=== PATIENT | male | born 1960 | race Caucasian/White ===

== ENCOUNTER 2019-07-16 11:52 | Inpatient (IN) ==
--- NOTE | 2019-07-16 12:32 | Diag Imaging Result Doc PS360 ---
EXAM: TOE(S)-RIGHT INDICATION: possible necrotic 5th toe TECHNIQUE: 3 views COMPARISON: None. FINDINGS: There has been a prior amputation of the second toe at the MTP joint. There is soft tissue edema around the fifth toe. There is suggestion of mild periosteal reaction at the distal shaft of the fifth metatarsal this could represent periostitis. However, no well-defined bony erosion is identified to indicate osteomyelitis by plain radiograph on the current study. There is no discrete fracture, dislocation, or significant intrinsic osseous lesion, otherwise. IMPRESSION: Soft tissue edema around the fifth toe suggesting cellulitis and mild periosteal reaction around the distal shaft of the fifth metatarsal as described. Electronically signed by Jagdish Williamson 07/16/2019 12:30 PM
[2019-07-16 13:01] LABS: BASO# 0.07 X1000 (0.0-0.2); BASO% 0.6 % (0.0-0.8); EOS% 1.8 % (0.0-10.0); HEMATOCRIT 39.7 % (42.0-52.0); HEMOGLOBIN 13.6 g/dL (14.0-18.0); IMM GRAN# 0.05 X1000 (0.0-0.04); IMM GRAN% 0.5 % (0.0-0.5); LYMPH# 2.15 X1000 (1.2-3.4); LYMPH% 19.6 % (20.5-51.1); MCHC 34.3 g/dL (33-37); MCV 87.4 FL (81-99); MONO# 1.09 X1000 (0.11-0.59); MPV 9.9 FL (7.4-10.4); NEUT# 7.39 X1000 (1.4-6.5); NEUT% 67.5 % (42.2-75.2); PLT 369 X1000 (130-400); RBC 4.54 XMIL (4.7-6.1); RDW 12.2 % (11.5-14.5); WBC 10.95 X1000 (4.8-10.8)
[2019-07-16 13:07] LABS: INR 1.07; PTT 30.1 Seconds (22.3-41.8)
[2019-07-16] MEDS ORDERED: CLINDAMYCIN IV ONE (13:30)
[2019-07-16 13:32] LABS: ESTIMATED GFR > 60
[2019-07-16 13:35] LABS: AGAP 13; ALB/GLOB RATIO 0.7; ALBUMIN 3.5 g/dL (3.5-5.0); ALKALINE PHOSPHATASE 131 U/L (32-122); BUN 7 mg/dL (8-22); CALCIUM 9.4 mg/dL (8.8-10.2); CHLORIDE 88 mmol/L (98-107); COSMO 261; GLUCOSE 137 mg/dL (70-104); GOT 24 U/L (10-34); GPT 13 U/L (10-44); POTASSIUM 3.9 mmol/L (3.5-5.1); SODIUM 130 mmol/L (136-145); TCO2 29 mmol/L (25-35); TOTAL BILIRUBIN 0.64 mg/dL (0.20-1.00); TOTAL PROTEIN 8.4 g/dL (6.3-8.3)
--- NOTE | 2019-07-16 13:45 | PROVIDER DOCUMENTATION ---
This chart was entered by Chen Queen Scribe, acting as scribe for Serge Cardona MD. HPI-General Adult - General Chief Complaint: Extremity Pain Stated Complaint: TOE PAIN Time Seen by Provider: 07/16/19 12:02 Source: patient Allergies/Adverse Reactions: Patient Allergies Allergy/AdvReac Type Severity Reaction Status Date / Time No Known Allergies Allergy Verified 07/16/19 12:36 Home Medications: Home Medication List Medication Instructions Recorded Confirmed Last Taken Type Aspirin [Aspirin EC] 81 mg PO QHS 07/16/19 07/16/19 Unknown History Celecoxib [Celebrex] 200 mg PO DAILY 07/16/19 07/16/19 Unknown History Cyclobenzaprine [Flexeril] 10 mg PO TID PRN 07/16/19 07/16/19 Unknown History Esomeprazole [Nexium] 40 mg PO DAILY 07/16/19 07/16/19 Unknown History Gabapentin [Neurontin] 800 mg PO TID 07/16/19 07/16/19 07/15/19 History Hydrochlorothiazide 25 mg PO DAILY 07/16/19 07/16/19 Unknown History Hydrocodone/Acetaminophen [[place] 1 ea PO 4XDAY PRN 07/16/19 07/16/19 07/16/19 10:00 History 10-325 Tablet] - History of Present Illness -Gen Adult Nature of Presenting Problems: 59 yowm presents to the ed from see in [facility] at [facility] and sent to ed. pt has a chronic ulceration to bottom of rt lateral foot not healing and sts on monday morni he noted rt 5th digit of same foot had turned balck and noted cellulites noted to rt food. pt wound has foul smell and with onset has had fever and chills with bodyaches Location of Pain/Injury: reports: feet (rt), generalized (bodyaches) Quality of Pain: reports: aching Severity: reports: moderate Onset/Duration: reports: 3 days ago Timing: reports: still present, getting worse Context/Activities at Onset: reports: light activity Modifying Factors: improves with: nothing Associated Symptoms: reports: fever/chills, muscle aches, other (rt foot). denies: back/neck pain, chest pain, cough, diaphoresis, headaches, nausea, shortness of breath, vomiting, weakness Similar Symptoms Previously?: Yes (2nd digit amputated in past due to same issue) Recently seen or treated by another doctor?: Yes ([facility] today) - Sickle Cell Pain Related Context Sickle Cell Pain Location: denies: none, head, face, mouth, neck, chest, upper extremity, hand(s), abdomen, back, pelvis, genitalia, lower extremity, feet, upper body, lower body, generalized, other Review of Systems - Adult - REVIEW OF SYSTEMS - ADULT Constitutional: reports: see HPI, chills, fever Eyes: reports: no symptoms reported Ears, Nose, Mouth & Throat: reports: no symptoms reported Cardiovascular: denies: chest pain, palpitations Respiratory: denies: cough, shortness of breath, wheezing Gastrointestinal: denies: abdominal pain, diarrhea, nausea, vomiting Genitourinary: reports: no symptoms reported Musculoskeletal: reports: muscle aches (generalized), other (5th digit rt foot). denies: back pain, neck pain Integumentary: reports: see HPI, skin sores/ulcer Neurological: denies: dizziness/vertigo, headache/migraines Psychiatric: reports: no symptoms reported Endocrine: reports: no symptoms reported Hematologic/Lymphatic: reports: no symptoms reported Allergic/Immunologic: reports: no symptoms reported All Other Systems: Reviewed and Negative Past History - Adult - PAST MEDICAL HISTORY-ADULT Review of Records: reports: Old Records Reviewed, Nursing Assessment Review, Medications Reviewed, Social history reviewed & non-contributory. Major Childhood Illnesses: reports: denies history Cardiovascular: reports: HTN, hyperlipidemia Respiratory: reports: COPD Gastrointestinal: reports: GERD Genitourinary: reports: denies history Musculoskeletal: reports: chronic pain Neurological: reports: CVA Psychiatric: reports: denies history Endocrine/Immune: reports: Diabetes Diabetes Type: Type 2 Other Conditions: reports: deaf/hard of hearing - PRIOR SURGERIES/PROCEDURES Surgical/Procedure History: reports: orthopedic (extremity) - IMMUNIZATION STATUS Childhood Immunizations: See Nurse Assessment Flu Vaccine: See Nurse Assessment - FAMILY HISTORY Family History: reviewed, not pertinent - SOCIAL HISTORY Smoking: cigarettes, greater than 1 pack/day Provider spent 3-5 mins advising pt. on dangers of tobacco.: Discussed manners to quit use, and f/u contacts for add'l counseling. Substance Use: denies Alcohol Use Frequency: never Living Situation: alone Physical Exam-General - PHYSICAL EXAM-ADULT Initial Vital Signs Reviewed: Yes - CONSTITUTIONAL General Appearance: appears well, alert, no apparent distress, obese - EYES Eyes: PERRL/EOMI, pink conjunctivae - HEAD, EARS, NOSE, MOUTH & THROAT HENMT: normocephalic/atraumatic, moist mucous membranes, other (no teeth) - NECK Neck: non-tender, full range of motion, supple, normal inspection - RESPIRATORY Respiratory: chest non-tender, lungs clear, normal breath sounds - CARDIOVASCULAR Cardiovascular: normal peripheral pulses, regular rate, rhythm - CHEST (BREASTS) Chest/Breast: deferred - GASTROINTESTINAL (ABDOMEN) Abdominal Exam: normal bowel sounds, non tender, soft - GENITOURINARY Male Genitalia: deferred Rectal Exam: deferred Hemoccult Exam: deferred - LYMPHATIC Lymphatic: no adenopathy - MUSCULOSKELETAL Back Exam: normal inspection, no CVA tenderness, no vertebral tenderness Extremity: pelvis stable, erythema (rt foot), inflammation (rt foot), tenderness (5th digit on rt foot), other (1cm ulceration to bottom lateral rt foot and 5th digit with necrotic tissue and skin is sloughing off on medial aspect of 5th digit. 2nd digit amputayted in past for same issue). negative: normal inspection - SKIN Integumentary: normal color, normal turgor, warm/dry, erythema (rt foot), tenderness (rt foot and), other (ulceration to bottom lateral of rt foot 1 cm in size and 5th digit with redness nercrosis and foul smell) - NEUROLOGIC Neurologic: grossly normal - PSYCHIATRIC Psych/Mental Status: normal mood/affect, normal thought content, normal thought process, oriented x 3 Progress - PLAN OF CARE/RESULTS Progress/Plan/Lab Results: Vital Signs - 8 hr 07/16/19 11:57 Temperature 98.1 F Pulse Rate 91 H Respiratory Rate 18 Blood Pressure 120/83 O2 Sat by Pulse Oximetry 97 Orders Category Date Time Status TOE(S)-RIGHT [RAD] Stat Exams 07/16/19 12:07 Ordered CBC WITH ELECTRONIC DIFF [HEME] Stat Lab 07/16/19 12:08 Uncollected CMP [COMPREHENSIVE METABOLIC PANEL] [CHEM] Stat Lab 07/16/19 12:08 Uncollected PROTIME WITH INR [COAG] Stat Lab 07/16/19 12:09 Uncollected PTT [COAG] Stat Lab 07/16/19 12:09 Uncollected Result Diagrams: 07/16/19 12:49 07/16/19 12:49 - REASSESSMENT Reassessment #1 Time Reassessed: 13:05 Status: unchanged - XRAY 1 XRAY: Right XRAY Study: other (EXAM: TOE(S)-RIGHT INDICATION: possible necrotic 5th toe TECHNIQUE: 3 views COMPARISON: None. FINDINGS: There has been a prior amputation of the second toe at the MTP joint. There is soft tissue edema around the fifth toe. There is suggestion of mild periosteal reaction at the distal shaft of the fifth metatarsal this could represent periostitis. However, no wel l-defined bony erosion is identified to indicate osteomyelitis by plain radiograph on the current study. There is no discrete fracture, dislocation, or significant intrinsic osseous lesion, otherwise. IMPRESSION: Soft tissue edema around the fifth toe suggesting cellulitis and mild periosteal reaction around the distal shaft of the fifth metatarsal as described. Electronically signed by Jagdish Williamson 07/16/2019 12:30 PM 07/16/19 1230 Interpreting Physician: Jagidsh Williamson MD Dictated Date/Time: 07/16/19 1227 cc: Serge Cardona MD; Lexii Bah toes) - CONSULTS/PCP/HOSPITALIST Notification #1 *Consult/PCP/Hospitalist*: hospitalist dr king Time Discussed: 13:24 Consult Disposition: Admit #2 Consult: ortho dr aiken Time Discussed: 13:31 (will forward to Dr Cochran (brand marketing specialist)) Reason/Comments: phone consult Departure - Departure Date of Disposition Decision: 07/16/19 Time of Disposition Decision: 13:30 DIAGNOSIS: Tobacco use disorder, Cellulitis, Hyponatremia Diabetic foot ulcer Qualifiers: Diabetic foot ulcer location: unspecified part of foot Diabetes mellitus type: type 2 Laterality: right Non-pressure ulcer stage: with other severity Qualified Code(s): E11.621 - Type 2 diabetes mellitus with foot ulcer; L97.518 - Non-pr essure chronic ulcer of other part of right foot with other specified severity Disposition: ADMITTED INPATIENT 09 Certified Medical Emergency: Emergent Condition: Fair Referrals and Follow-Ups: Lexii Bah CRNP [Primary Care Provider] - - Critical Care Note This patient required my direct & personal management of CC.: Yes Total Time (mins): 36 Critical Care Statement: This patient required my direct personal management to treat or rule out processes, the absence of which, could potentiallly result in sudden, clinically significant life or limb threatening deterioration. Attestation - Physician/ TYRELL Attestation Patient care was provided by Advanced Practice Provider:: No The physician spent face to face time with patient:: Yes Advanced Practice Provider documentation review:: Supervising physician onsite and consulted in the evaluation and care of this patient. The physician did have a face to face encounter with the patient. This chart was documented by the indicated scribe, (Chen Queen Scribe) and accurately reflects the services I performed and decisions made by me, Serge Cardona MD, as attested by the provider's signature.
[2019-07-16] MEDS ORDERED: CLINDAMYCIN 600 MG/D5W 600 MG/50 ML IVPB IV ONE (14:00)
[2019-07-16] MEDS ORDERED: ZOFRAN IV ONE (14:04)
[2019-07-16] MEDS ORDERED: DILAUDID IV ONE (14:04)
--- NOTE | 2019-07-16 14:13 | HISTORY AND PHYSICAL ---
This is a 59-year-old who is followed at [facility] I think her name is Dr. Bah. He has had numerous toe amputations in the past. He has underlying diabetes mellitus, hypertension, hypercholesterolemia. He does smoke a pack and half a day which recently has cut down from 3 packs a day. He has had neck surgery, cervical disk surgery and lower back surgery as well. ALLERGIES: No known drug allergies. FAMILY HISTORY: Positive for diabetes and hypertension. SOCIAL HISTORY: Negative for alcohol. He was a mayur for years. He presented this time with his right little toe swollen and irritated red and appeared to have infection. He is status post amputation the left foot of his 2nd toe and his 5th toe, on the right foot 2nd toe has been amputated. He stated that he felt good until about Monday today is Monday, and then he just felt bad all over, felt like he might be having fever, general body aches and malaise. He states he has had some loose stool. He has not been on any antibiotic. He does not feel like he has had any dramatic weight change.HEENT: No change in visual or hearing acuity reported. Respiratory: No increased work of breathing or dyspnea. Cardiovascular: No chest pain or tachy palpitation. GI/: Unremarkable. Musculoskeletal/neurologic: As noted above. Endocrinologic/hemologic: No significant history. PHYSICAL EXAM: Temperature 98.1 degrees, pulse 90, respirations 18, blood pressure 120/83. Pupils are equal and round. LUNGS: Clear in all lung lloyd. CARDIOVASCULAR: Regular rhythm and rate without murmur or S3. ABDOMEN: Soft. SKIN: Warm and dry. Left foot status post 2nd toe and 5th toe amputation. Right foot 2nd toe amputation, right little toe with drainage in between the toe and general swelling, erythema. He has significant peripheral neuropathy in both feet and he has had this for years. Height is 5 feet 9 inches, weight 170 pounds. LAB: White count 10,950, hematocrit 39, platelet count 369,000. Sodium 130, potassium 3.9, chloride 88, BUN 7, creatinine 1.0, AST 24, ALT is 13, alkaline phosphatase is 131. Pro time is 14, PTT was 30. X-ray of the right little toe soft tissue edema around the 5th toe suggesting cellulitis and mild periosteal reaction around the distal shaft of the 5th metatarsal. So we will go ahead and ask Orthopedic to see. We need to cover for Streptococcus A and staph including methicillin-resistant Staph so will put on vancomycin. Diabetes mellitus type 2. We need to check pattern sugars and follow sugar control. Blood sugar was 137. Will check a hemoglobin A1c, we need to check T4, TSH, B12, folate and will put him on a diabetic diet. I gave him a nicotine patch. REVIEW OF MEDICATIONS: He is on aspirin 81 mg at bedtime, Celebrex 200 mg daily, Flexeril 10 mg p.o. t.i.d. p.r.n., Nexium 40 mg daily, Neurontin 800 mg t.i.d., hydrochlorothiazide 25 mg a day, he takes [place] 10/325 one p.o. 4 times a day p.r.n. cc: Rex Ordaz MD
[2019-07-16 15:24] LABS: FREE T4 1.49 ng/dL (0.93-1.70); TSH 0.87 uIUmL (0.27-4.20)
[2019-07-16] MEDS ORDERED: VANCOMYCIN IV PER PHARMACY MISC SCH (15:34)
[2019-07-16] MEDS ORDERED: ZOFRAN IV PRN (15:34)
[2019-07-16] MEDS: HUMALOG SUBQ SCH (15:55)
[2019-07-16 16:02] LABS: URINE SOURCE CLEAN CATCH
[2019-07-16 16:06] LABS: HEMOGLOBIN A1C 5.6 % (4.8-6.0)
[2019-07-16] MEDS: ZOSYN 3.375 GM in NS 50 ML IV SCH ×2 (16:08→21:20)
[2019-07-16 16:14] LABS: BILIRUBIN URINE NEGATIVE (NEGATIVE); BLOOD URINE NEGATIVE (NEGATIVE); COLOR YELLOW; GLUCOSE URINE NEGATIVE (NEGATIVE); KETONE URINE NEGATIVE (NEGATIVE); LEUKOCYTES URINE NEGATIVE (NEGATIVE); NITRITE URINE NEGATIVE (NEGATIVE); PROTEIN URINE TRACE mg/dL (NEGATIVE); SP GRAVITY URINE 1.015; TURBIDITY URINE CLEAR (CLEAR); UR EPITHELIAL CELLS <10 /HPF (<10); URINE BACTERIA NEGATIVE /HPF; URINE RBC <10 /HPF (<10); URINE WBC <10 /HPF (<10); UROBILINOGEN URINE NORMAL (NORMAL)
[2019-07-16 16:27] LABS: URINE CASTS NONE SEEN; URINE CRYSTALS NONE SEEN; URINE YEAST NONE SEEN
[2019-07-16] MEDS: NEURONTIN PO SCH ×2 (16:33→21:18)
[2019-07-16] MEDS ORDERED: VANCOMYCIN 2,000 MG in NS 500 ML IV ONE (17:00)
--- NOTE | 2019-07-16 18:33 | ORTHOPAEDICS CONSULTATION ---
DATE: 07/16/2019 CHIEF COMPLAINT: Right foot and toe pain. HISTORY OF PRESENT ILLNESS: This is a 59-year-old male who came to the emergency department for his right foot pain. He states he has had multiple toe amputations in the past and that he is diabetic. He reports that he does not have much sensation in the right lower extremity or any in the feet at this time. PAST MEDICAL HISTORY: The patient has history of diabetes mellitus, hypertension, hypercholesterolemia. ALLERGIES: He has no known drug allergies. SOCIAL HISTORY: Positive for smoking half a pack a day and negative for alcohol or drug use. MEDICATIONS: He reports aspirin 81 mg daily, Celebrex 200 mg daily, Flexeril 10 mg t.i.d. p.r.n., Nexium 40 mg daily, Neurontin 800 mg t.i.d., hydrochlorothiazide 25 mg daily and [place] 10 q.i.d. for pain. PHYSICAL EXAMINATION: Vital Signs: Temperature 98.1 degrees, pulse rate 91, respiratory rate 18, blood pressure 113/65, oxygen is 98% on room air. Pain scale is 7/10. General: Patient is awake, alert, sitting in hospital bed eating peanut butter crackers. He is not in any acute distress at this time. Lungs: There is equal chest expansion rise and fall. Cardiovascular: Regular rate and rhythm. Abdomen: Soft, nontender. Extremities: Right lower extremity exam, there is redness and tenderness along the right foot. There is redness and decreased sensation to the right little toe. There is decreased capillary refill. There is good pedal pulses. There is good range of motion of the foot and ankle. LABS: White blood cells 10.95, hemoglobin 13.6, hematocrit 39.7, INR 1.07. Sodium 130, potassium 3.9, chloride 88, BUN 7, creatinine 1.0, glucose 137, alkaline phosphatase 131. Urinalysis has trace protein present. IMAGING: X-ray of the right little toe reveals soft tissue edema around the 5th toe that might indicate cellulitis and reaction in the 5th metatarsal region as well. REVIEW OF SYSTEMS: A 10 point review of systems performed. Pertinent positives listed in HPI. ASSESSMENT: Cellulitis with possible osteonecrosis of right lower toe and diabetic foot ulcer. Also diabetes mellitus. PLAN: We plan on letting the patient be admitted by the hospitalist at this time. We will see if the IV antibiotics has any effect on this. We will consult general surgery for surgical management at this time. Dictated by GOGO You for Jose Alberto Cochran MD cc: GOGO You MD [facility]
[2019-07-16] MEDS: ASPIRIN EC PO SCH (21:17)
[2019-07-16] MEDS: FLEXERIL PO PRN (21:17)
[2019-07-16] MEDS: NORCO-10 PO PRN (21:17)
[2019-07-17] MEDS: HUMALOG SUBQ SCH ×5 (01:50→21:41)
[2019-07-17] MEDS: ZOSYN 3.375 GM in NS 50 ML IV SCH ×3 (03:17→16:17)
[2019-07-17] MEDS: VANCOMYCIN 1,150 MG in NS 250 ML IV SCH ×2 (06:57→19:14)
[2019-07-17 07:23] LABS: BASO% 1.1 % (0.0-0.8); EOS# 0.31 X1000 (0.0-0.7); EOS% 3.5 % (0.0-10.0); HEMATOCRIT 41.1 % (42.0-52.0); HEMOGLOBIN 13.8 g/dL (14.0-18.0); IMM GRAN# 0.03 X1000 (0.0-0.04); IMM GRAN% 0.3 % (0.0-0.5); LYMPH# 2.85 X1000 (1.2-3.4); MCH 29.7 PG (27-31); MCHC 33.6 g/dL (33-37); MCV 88.4 FL (81-99); MPV 9.7 FL (7.4-10.4); NEUT# 4.82 X1000 (1.4-6.5); NEUT% 54.1 % (42.2-75.2); PLT 422 X1000 (130-400); RBC 4.65 XMIL (4.7-6.1); RDW 12.2 % (11.5-14.5); WBC 8.91 X1000 (4.8-10.8)
[2019-07-17 07:44] LABS: AGAP 13; BUN 9 mg/dL (8-22); CALCIUM 8.9 mg/dL (8.8-10.2); CHLORIDE 92 mmol/L (98-107); COSMO 271; ESTIMATED GFR > 60; GLUCOSE 107 mg/dL (70-104); POTASSIUM 3.8 mmol/L (3.5-5.1); SODIUM 136 mmol/L (136-145); TCO2 31 mmol/L (25-35)
[2019-07-17] MEDS: NICODERM PATCH TD SCH (09:10)
[2019-07-17] MEDS: FLEXERIL PO PRN ×2 (09:11→16:21)
[2019-07-17] MEDS: NORCO-10 PO PRN ×3 (09:11→21:39)
[2019-07-17] MEDS: NEXIUM PO SCH (09:11)
[2019-07-17] MEDS: NEURONTIN PO SCH ×3 (09:12→21:38)
[2019-07-17] MEDS: CELEBREX PO SCH (09:12)
[2019-07-17] MEDS: HYDROCHLOROTHIAZIDE PO SCH (09:12)
[2019-07-17] MEDS ORDERED: ZOSYN ONE (14:39)
--- NOTE | 2019-07-17 17:30 | PROGRESS NOTE ---
DATE: 07/17/2019 SUBJECTIVE: He does feel a little better. He was eating his breakfast. Foot feels a little better. OBJECTIVE: Temperature 98.3 degrees, pulse 69, respirations 18, blood pressure 93/59. Pupils are equal round. Lungs are clear in all lung lloyd.Cardiovascular: Regular rhythm and rate without murmur or S3. Abdomen is soft. Skin is warm and dry. ASSESSMENT AND PLAN: 1. Cellulitis, possible osteonecrosis of the right 5th toe diabetic foot ulcer. Continue broad- spectrum antibiotics. Dr. Person to evaluate. 2. Diabetes mellitus, type 2. Continue patterned sugars. Blood sugars appear to be under excellent control. 3. History of peripheral neuropathy. Patient is receiving vancomycin and Zosyn at this time. Dr. Person is to evaluate and decide whether he needs amputation. cc: Rex Ordaz MD
[2019-07-17] MEDS: TYLENOL PO PRN (19:19)
--- NOTE | 2019-07-17 20:58 | GENERAL SURGERY CONSULTATION ---
DATE: 07/17/2019 REASON FOR CONSULTATION: I have been asked by Dr. Ordaz, the hospitalist, to see Mr. Sumner regarding his right small toe infection. HISTORY OF PRESENT ILLNESS: He is a pleasant 59-year-old gentleman who presents with some drainage and swelling of his right small toe. He apparently started having some trouble with it last week, and started feeling bad, even having what he thought might be some fever. He presented to the emergency department then yesterday. He has a history of previous amputations to his left foot and on his right foot as well. He has had the 2nd and 5th toes amputated from the left foot, and the right 2nd toe amputated as well. PAST MEDICAL HISTORY: 1. Diabetes. 2. Hypertension. 3. Hypercholesterolemia. MEDICATIONS: 1. Celebrex 200 mg daily. 2. Flexeril 10 mg t.i.d. p.r.n. 3. Nexium 40 mg daily. 4. Hydrochlorothiazide 25 mg daily. 5. [place] 10 four times a day as needed. 6. Neurontin 800 mg 3 times a day. 7. Aspirin 81 mg at night. ALLERGIES: Hydromorphone and Zofran. SOCIAL HISTORY: He denies alcohol. He does smoke a pack and a half a day. PAST SURGICAL HISTORY: 1. Cervical disk surgery. 2. Lower back surgery. 3. Amputations as noted above. FAMILY HISTORY: Pertinent for diabetes and hypertension. REVIEW OF SYSTEMS: Negative in all 10 subsystems, except the ones mentioned above. PHYSICAL EXAMINATION: Vital Signs: He is afebrile. Heart rate 69. Blood pressure 93/59. Neck: No cervical adenopathy. Lungs: Bilateral breath sounds. Heart: Regular rate and rhythm. Abdomen: Soft. Extremities: Femoral pulses are present. He has dorsalis pedis pulses bilaterally. He has posterior tibial pulses bilaterally. The amputations above were noted. He has a right 5th toe that is swollen and erythematous. He has a small neuropathic ulcer on the plantar aspect of his foot at the distal metatarsal. ASSESSMENT: Right foot diabetic infection. Since he has good blood supply, he certainly has a chance to improve this soft tissue infection. He may ultimately come to amputation, but I think he should undergo some antibiotic therapy first to see what kind of improvement he derives from antibiotic therapy alone. Will clean his wound with Vashe. I will continue to follow him along. cc: Michael Person MD
[2019-07-17] MEDS: ASPIRIN EC PO SCH (21:38)
[2019-07-18] MEDS: ZOSYN 3.375 GM in NS 50 ML IV SCH ×5 (05:28→22:39)
[2019-07-18] MEDS: NORCO-10 PO PRN ×4 (05:28→22:49)
[2019-07-18] MEDS: FLEXERIL PO PRN (05:36)
[2019-07-18] MEDS: VANCOMYCIN 1,150 MG in NS 250 ML IV SCH (06:27)
[2019-07-18] MEDS: HUMALOG SUBQ SCH ×2 (06:29→21:32)
--- NOTE | 2019-07-18 09:47 | PROGRESS NOTE ---
DATE: 07/18/2019 SUBJECTIVE: He is eating breakfast, feels good. He feels like he feels better overall and his foot feels a little better. OBJECTIVE: Vitals: Temperature 98.7 degrees, pulse 80, respirations 20, blood pressure 124/76. HEENT: Pupils are equal and round. Lungs: Clear in all lung lloyd. Cardiovascular: Regular rhythm and rate without murmur or S3. Abdomen: Soft. Skin: Warm and dry. DATA: Urine output is 4500 mL. ASSESSMENT AND PLAN: 1. Cellulitis, probable osteonecrosis of the bone in the fifth toe. Dr. Person evaluating. Continue present antibiotics. 2. Diabetes mellitus type 2. Sugars appear to be fairly well controlled. Appears to have good blood supply in that foot. Maybe has a chance to improve this soft tissue infection. He may ultimately come to amputation, but will try antibiotics for a bit. Currently, he is on vancomycin and Zosyn. Blood cultures are pending. Cultures from the wound show gram-negative rods. I do not have specific ID yet. cc: Rex Ordaz MD
[2019-07-18] MEDS: CELEBREX PO SCH (09:50)
[2019-07-18] MEDS: NICODERM PATCH TD SCH (09:50)
[2019-07-18] MEDS: NEURONTIN PO SCH ×3 (09:50→22:39)
[2019-07-18] MEDS: NEXIUM PO SCH (09:50)
[2019-07-18] MEDS: HYDROCHLOROTHIAZIDE PO SCH (09:50)
[2019-07-18] MEDS: DEMEROL IV PRN (16:31)
--- NOTE | 2019-07-18 21:30 | GENERAL SURGERY PROGRESS NOTE ---
DATE: 07/18/2019 Mr. Sumner' toe is still draining purulence from the base, still red and swollen. It has not improved significantly. I think we need to go ahead and do a 5th toe amputation. I discussed this with him. He agrees. We have him set up for the . cc: Michael Person MD
[2019-07-18] MEDS: ASPIRIN EC PO SCH (22:39)
[2019-07-19] MEDS: ZOSYN 3.375 GM in NS 50 ML IV SCH ×4 (04:07→22:06)
[2019-07-19] MEDS: DEMEROL IV PRN ×2 (04:07→22:02)
[2019-07-19] MEDS: HUMALOG SUBQ SCH ×5 (06:10→22:12)
[2019-07-19] MEDS: TYLENOL PO PRN (06:10)
[2019-07-19] MEDS: NORCO-10 PO PRN ×3 (08:39→23:35)
[2019-07-19] MEDS: CELEBREX PO SCH (08:41)
[2019-07-19] MEDS: NEURONTIN PO SCH ×3 (08:42→22:06)
[2019-07-19] MEDS: NEXIUM PO SCH (08:43)
[2019-07-19] MEDS: NICODERM PATCH TD SCH (08:43)
[2019-07-19] MEDS: HYDROCHLOROTHIAZIDE PO SCH ×3 (08:43→08:59)
--- NOTE | 2019-07-19 11:06 | PROGRESS NOTE ---
DATE: 07/19/2019 SUBJECTIVE: The patient is resting comfortably in bed. Not in any obvious distress. OBJECTIVE: Vital signs: Temperature 98.4 degrees, pulse 75, respirations 18, blood pressure is 111/70, oxygen saturation is 96%. HEENT: Atraumatic, normocephalic. Cardiovascular: S1, S2. Respiratory: Has evidence of good air entry bilaterally. Abdomen: Soft, nontender. No masses felt. Extremities: The patient does have a dressing around the wound site right foot. The dorsal aspect of the right foot distally is erythematous. The right 2nd toe is amputated. The right 5th toe has necrotic change in its dorsal aspect and has a wound with purulent material on the inferior aspect of the toe. Central nervous system: No obvious focal deficits noted. LABORATORY DATA: Blood sugar is 95. ASSESSMENT AND PLAN: 1. Cellulitis right foot as well as necrotic change/purulent wound inferior 5th toe. Continue current antibiotic regimen. The patient is scheduled to have amputation of the 5th toe today. 2. Diabetes mellitus. Continue blood sugar monitoring as well as sliding scale insulin. The patient's hemoglobin A1c is 5.6. 3. Gastrointestinal prophylaxis. Continue proton pump inhibitor. 4. Deep vein thrombosis prophylaxis. The patient can be placed on Lovenox postop if okay with the surgical team. cc: [place] Sandy MD
[2019-07-19] MEDS ORDERED: FENTANYL ONE (12:40)
[2019-07-19] MEDS ORDERED: DIPRIVAN 1% ONE (12:40)
[2019-07-19] MEDS ORDERED: XYLOCAINE-MPF 2% ONE (12:41)
[2019-07-19] MEDS ORDERED: REGLAN IV ONE (12:53)
[2019-07-19] MEDS ORDERED: PEPCID IV ONE (12:54)
[2019-07-19] MEDS ORDERED: PEPCID ONE (12:59)
[2019-07-19] MEDS ORDERED: REGLAN ONE (12:59)
[2019-07-19] MEDS: VANCOMYCIN 1 GM/NS 1 GM/250 ML IVPB IV SCH ×2 (13:35)
--- NOTE | 2019-07-19 19:54 | OPERATIVE NOTE ---
PROCEDURE DATE: 07/19/2019 PROCEDURE: Amputation of right 5th toe. SURGEON: Michael Person MD RETAIL SALES VITAMIN CONSULTANT: Lauren. PREOPERATIVE DIAGNOSIS: Diabetic foot infection, right 5th toe, with osteomyelitis. POSTOPERATIVE DIAGNOSIS: Diabetic foot infection, right 5th toe, with osteomyelitis. DESCRIPTION OF PROCEDURE: Satisfactory general anesthesia was achieved. The right foot was prepped and draped in a sterile fashion. He had an infected 5th toe and an ulcer on the plantar aspect. We made an incision around the base of the toe and carried our incision to the metatarsophalangeal joint. The distal metatarsal was also quite diseased and it simply crumbled. We removed it with a rongeur down to acceptable bone. We removed the contiguous tendinous tissue as well. We then copiously irrigated the wound and all the necrotic debris was removed. The fluid did come out the plantar ulcer. We placed a 1/4-inch [place] drain through the plantar ulcer. Hemostasis was satisfactory. We then closed the skin anteriorly with interrupted 3-0 nylon simple stitches. A 3-0 nylon was used to secure the drain at the exit site. Sterile 4 x 4s and a Kerlix were applied. He tolerated it well and was sent to the recovery room in satisfactory condition. cc: Michael Person MD
[2019-07-19] MEDS: ASPIRIN EC PO SCH (22:06)
[2019-07-19] MEDS: FLEXERIL PO PRN ×2 (23:35)
[2019-07-20] MEDS: VANCOMYCIN 1 GM/NS 1 GM/250 ML IVPB IV SCH ×2 (00:14→13:05)
[2019-07-20] MEDS: ZOSYN 3.375 GM in NS 50 ML IV SCH ×5 (03:14→22:25)
[2019-07-20] MEDS: HUMALOG SUBQ SCH ×4 (06:51→20:48)
[2019-07-20] MEDS: DEMEROL IV PRN ×3 (08:25→20:49)
[2019-07-20] MEDS: NEURONTIN PO SCH ×3 (08:29→20:47)
[2019-07-20] MEDS: NICODERM PATCH TD SCH (08:29)
[2019-07-20] MEDS: CELEBREX PO SCH (08:29)
[2019-07-20] MEDS: HYDROCHLOROTHIAZIDE PO SCH (08:29)
[2019-07-20] MEDS: NEXIUM PO SCH (08:29)
[2019-07-20] MEDS: NORCO-10 PO PRN ×2 (12:05→16:29)
--- NOTE | 2019-07-20 12:23 | PROGRESS NOTE ---
DATE: 07/20/2019 SUBJECTIVE: Patient has no complaints, and states he is feeling okay. PHYSICAL EXAMINATION: Vital Signs: Reviewed. Temperature 98 degrees, pulse 84, and BP 146/88. General: Patient is awake and alert. He is in no distress. HEENT: Normocephalic. Neck: Supple. Cardiovascular: Regular rate. Chest: Clear. Abdomen: Soft. Extremities: Right foot bandage is clean, dry and intact from a 2nd toe amputation. Neurologic: No focal changes. ASSESSMENT: 1. Cellulitis right foot with Proteus status post amputation of the 5th digit. 2. Diabetes with actually good home control and A1c of 5.6. 3. Osteomyelitis. PLAN: We will continue patient in the hospital. Continue antibiotics, wound care, pain control, and will follow. cc: Randy Montes MD
--- NOTE | 2019-07-20 13:41 | GENERAL SURGERY PROGRESS NOTE ---
DATE: 07/20/2019 SUBJECTIVE: The patient is doing okay. No acute events overnight. OBJECTIVE: General: He is awake, alert, oriented x3. No acute distress. Extremities: The right foot was examined. He does have swelling and erythema and some mild drainage around the drain. ASSESSMENT/PLAN: A 59-year-old male status post right fifth toe amputation with drainage of abscess. He still has significant cellulitis of the foot. We will continue the vancomycin and Zosyn and allow for further drainage and improvement prior to taking out the stitches and drain. He should offload it, only walk on the heel. cc: Abran Tsang MD
[2019-07-20] MEDS: ASPIRIN EC PO SCH (20:48)
[2019-07-21] MEDS: VANCOMYCIN 1 GM/NS 1 GM/250 ML IVPB IV SCH ×2 (00:22→12:51)
[2019-07-21] MEDS: DEMEROL IV PRN ×4 (01:53→20:54)
[2019-07-21] MEDS: ZOSYN 3.375 GM in NS 50 ML IV SCH ×5 (03:13→23:44)
[2019-07-21] MEDS: HUMALOG SUBQ SCH ×4 (06:09→20:52)
[2019-07-21] MEDS: NICODERM PATCH TD SCH (09:49)
[2019-07-21] MEDS: CELEBREX PO SCH (09:49)
[2019-07-21] MEDS: NEXIUM PO SCH (09:49)
[2019-07-21] MEDS: NEURONTIN PO SCH ×3 (09:49→20:52)
[2019-07-21] MEDS: HYDROCHLOROTHIAZIDE PO SCH (09:50)
--- NOTE | 2019-07-21 10:10 | PROGRESS NOTE ---
DATE: 07/21/2019 SUBJECTIVE: Mr. Sumner says he is feeling much better. OBJECTIVE: Vital Signs: He remains afebrile, temperature 98.8 degrees, pulse 78, respirations 18, blood pressure 128/83. HEENT: Pupils are equal and round. Lungs: Clear in all lung lloyd. Cardiovascular: Regular rhythm and rate without murmur or S3. Abdomen: Soft. Skin: Warm and dry. ASSESSMENT AND PLAN: Diabetic foot infection, right fifth toe, with osteomyelitis, amputation of the right fifth toe, doing well. Continue present antibiotics. Blood sugars appear under good control. Hopefully home soon. REVIEW OF ORDERS: Aspirin 81 mg a day, Celebrex 200 mg a day, Nexium 40 mg a day, hydrochlorothiazide 25 mg a day, Neurontin 800 mg 3 times a day, getting Demerol 25 mg IV every 6 hours p.r.n. pain, nicotine patch 21 mg a day, vancomycin 1 gram every 12 hours, and Zosyn 3.375 grams IV every 6 hours. cc: Rex Ordaz MD
[2019-07-21] MEDS: NORCO-10 PO PRN ×2 (12:54→17:10)
--- NOTE | 2019-07-21 18:31 | GENERAL SURGERY PROGRESS NOTE ---
DATE: 07/21/2019 SUBJECTIVE: The patient has had no new complaints. OBJECTIVE: Vitals: He is afebrile. Vital signs are stable. General: He is awake, alert, oriented x3. No acute distress. Extremities: The right foot remains somewhat edematous and red. LABORATORY: None today. ASSESSMENT AND PLAN: A 59-year-old male status post right 5th toe amputation. He continues to have evidence of infection in the foot. Dr. Person will re-evaluate tomorrow. Continue current antibiotics. cc: Abran Tsang MD
[2019-07-21] MEDS: FLEXERIL PO PRN (20:51)
[2019-07-21] MEDS: ASPIRIN EC PO SCH (20:52)
[2019-07-21] MEDS ORDERED: CALMOSEPTINE OINTMENT TOP PRN (21:02)
[2019-07-22] MEDS: NORCO-10 PO PRN ×2 (00:09→12:22)
[2019-07-22] MEDS: FLEXERIL PO PRN (00:10)
[2019-07-22] MEDS: DEMEROL IV PRN ×3 (03:09→15:46)
[2019-07-22] MEDS: ZOSYN 3.375 GM in NS 50 ML IV SCH ×3 (03:09→15:47)
[2019-07-22] MEDS: VANCOMYCIN 1 GM/NS 1 GM/250 ML IVPB IV SCH (05:28)
[2019-07-22] MEDS: HUMALOG SUBQ SCH ×3 (06:37→15:47)
[2019-07-22] MEDS: NEXIUM PO SCH (09:37)
[2019-07-22] MEDS: CELEBREX PO SCH (09:37)
[2019-07-22] MEDS: HYDROCHLOROTHIAZIDE PO SCH (09:37)
[2019-07-22] MEDS: NEURONTIN PO SCH ×2 (09:37→15:46)
[2019-07-22] MEDS: NICODERM PATCH TD SCH (09:38)
--- NOTE | 2019-07-22 09:38 | GENERAL SURGERY PROGRESS NOTE ---
DATE: 07/22/2019 Mr. Sumner is now 3 days after his small toe amputation. The drainage is minimal. The erythema is less. The anterior wound appears to be healing satisfactorily. It is fine with me that he be discharged on p.o. antibiotics. He is to return to see me at the [facility] on August 02. He is not to bear weight on his forefoot. He can bear weight on his heel. I am going to order a rocker shoe for him. He should change his bandage daily. cc: Michael Person MD
[2019-07-22 16:01] VITALS: BP 142/88
--- NOTE | 2019-07-22 17:12 | DISCHARGE SUMMARY ---
ADMISSION DATE: 07/16/2019 DISCHARGE DATE: 07/22/2019 PRIMARY CARE PROVIDER: GOGO Ro. HISTORY AND HOSPITAL COURSE: This is a 59-year-old followed at [place] per GOGO Ro. Has had numerous amputations in the past, underlying diabetes mellitus type 2, hypertension, hypercholesterolemia, smokes about a pack and half a day, has cut down from 3 packs a day. He had neck surgery and cervical disk surgery and lower back surgery as well. No known drug allergies. Presented with irritation and swelling of his toe. He has had amputation on the left foot. He had a 2nd toe amputation on the right foot as well. Dr. Person was consulted. He was begun on some antibiotic. Did not see much improvement, so after a couple days he underwent amputation of that 5th toe. Three days post amputation drainage was minimal, erythema less. The patient looks satisfactory to go home. Proteus mirabilis was what was growing out of the wound. It is resistant to ampicillin but was sensitive to levofloxacin, so we will put on Levaquin 750 mg once a day for another 7 days. He is to follow up with Dr. Person in 1 week and then follow up with his primary care as well. Note that blood sugars appeared to be well controlled in the hospital. DISCHARGE MEDICATIONS: He will be on aspirin 81 mg a day, Celebrex 200 mg a day. He takes Flexeril 10 mg p.o. t.i.d. p.r.n. muscle spasm, Nexium 40 mg a day, Neurontin 800 mg 3 times a day, hydrochlorothiazide 25 mg a day, [place] 10 mg 4 times a day p.r.n., and NicoDerm patch 21 mg a day, we will given 14 of those. I will give him Levaquin 750 mg p.o. daily, enough for 7 days. FOLLOW UP: Follow up with Dr. Pierre Person in 1 week. cc: Rex Ordaz MD
== END 2019-07-22 18:27 | disposition home health service (06) | DRG 617 ==
LOC: ED 11:52 → EDIPHOLD 15:09 → SUATTDRO 15:09 → EDIPHOLD 16:43 → 3N 19:09
PROVIDERS: ATTEND Emergency Medicine